=== PATIENT | female | born 1940 | race Two or more races ===

== ENCOUNTER 2018-04-04 02:08 | Inpatient (IN) | payer MEDICARE, OTHER ==
[~2018-04-04] VITALS: Ht 149.9 cm; Wt 62.6 kg
[2018-04-04 04:10] VITALS: BP 121/73
[2018-04-04] MEDS ORDERED: ZOLPIDEM TARTRATE 5 MG TABLET PO PRN (04:30)
[2018-04-04] MEDS ORDERED: MAGNESIUM HYDROXIDE 30 ML UDC PO PRN (04:30)
[2018-04-04] MEDS ORDERED: HYDROCODONE/APAP 5/325MG 1 EACH TABLET PO PRN (04:30)
[2018-04-04] MEDS ORDERED: MORPHINE SULFATE INJ 2 MG/ML DISP.SYRIN IV PRN (04:30)
[2018-04-04] MEDS ORDERED: ONDANSETRON HCL/PF 4 MG/2 ML VIAL IVP PRN (04:30)
[2018-04-04] MEDS ORDERED: ACETAMINOPHEN 325 MG TABLET PO PRN (04:30)
[2018-04-04] MEDS ORDERED: NITROGLYCERIN 0.4 MG/TAB BOTTLE SL PRN (04:30)
[2018-04-04] MEDS ORDERED: CLONIDINE HCL 0.1 MG TABLET PO PRN (04:30)
[2018-04-04] MEDS ORDERED: MAG HYDROX/AL HYDROX/SIMETH 30 ML UDC PO PRN (04:30)
[2018-04-04] MEDS ORDERED: DEXTROSE 50%-WATER 50 ML DISP.SYRIN IV PRN (04:30)
[2018-04-04] MEDS ORDERED: Z GUARD REMEDY 2 OZ OINT TP PRN (04:30)
[2018-04-04 04:41] VITALS: BP 121/73
--- NOTE | 2018-04-04 05:00 | NUR ---
BENZENE WORKERPHYSIATRIST NOTE: PT ADMITTED FROM [place] ACCOMPANIED BY 2 SLATE CUTTER OPERATOR VIA GURNEY. PT IS ALERT AND ORIENTED X3. INDONESIAN SPEAKING. NO ACUTE DISTRESS NOTED. NO COMPLAINTS OF PAIN OR DISCOMFORT AT THIS TIME. ON ROOM AIR, BREATHING EVEN AND UNLABORED WITH NORMAL RESPIRATIONS. SATURATING WELL ON ROOM AIR. PT HAS IV ON RIGHT ANTECUBITAL #20 INTACT AND PATENT, FLUSHING WELL. PERTINENT ASSESSMENTS DONE. SKIN IS INTACT. MRSA NARES DONE. PER PT, SHE DOES NOT HAVE THE LIST OF HER MEDS AND JUST CALL HER DAUGHTER BETWEEN 630-7AM TO BRING THE LIST FOR HER MED RECON. BIOCHEMISTRY TEACHER JUANK AWARE. CALL LIGHT PLACED WITHIN REACH. KEPT CLEAN, DRY AND COMFORTABLE. SAFETY AND FALL PRECAUTIONS OBSERVED AND MAINTAINED. WILL CONTINUE TO MONITOR PT.
[2018-04-04] MEDS: IV NS 0.9% 1,000 ML IV PRN (05:08)
--- NOTE | 2018-04-04 06:37 | NUR ---
JOURNALISM PROFESSOR NOTE: SPOKE WITH JODY (DAUGHTER) AND STATED THAT SHE'S GONNA BRING THE LIST OF THE PATIENT'S MEDICATION.
--- NOTE | 2018-04-04 06:41 | NUR ---
PLANER STONE NOTE: NO CHANGES NOTED THROUGHOUT THE SHIFT. NO ACUTE DISTRESS NOTED. DENIES PAIN AND DISCOMFORT. NO SOB NOTED. PT AMBULATED TO BATHROOM WITH ASSIST. KEPT CLEAN, DRY AND COMFORTABLE. CALL LIGHT PLACED WITHIN REACH. SIDE RAILS UP X3. BED LOCKED AND IN LOWEST POSITION. WILL ENDORSE TO DAY SHIFT RN FOR CONTINUITY OF CARE.
[2018-04-04] MEDS: BLOOD SUGAR DIAGNOSTIC 1 EACH STRIP IN SCH ×4 (06:47→21:38)
[2018-04-04 07:40] LABS: HEMATOCRIT 32 % (33-45); HEMOGLOBIN 10.4 g/dL (11.5-14.8); LYMPHOCYTES # (AUTO) 1.5 /CMM (0.8-4.8); LYMPHOCYTES % (AUTO) 31.5 % (20.0-44.0); MEAN CORPUSCULAR HGB CONC 32 g/dl (31.0-36.0); MEAN CORPUSCULAR VOLUME 76 fL (82-100); MONOCYTES # (AUTO) 0.3 /CMM (0.1-1.30); MONOCYTES % (AUTO) 5.7 % (2.0-12.0); NEUTROPHILS % (AUTO) 60.8 % (43.0-81.0); PLATELET COUNT (AUTO) 190 /CMM (150-450); RED BLOOD CELL COUNT(AUTO) 4.27 MIL/uL (4.0-5.2); WHITE BLOOD COUNT (AUTO) 4.9 K/uL (4.3-11.0)
[2018-04-04 07:44] LABS: ALANINE AMINOTRANSFERASE 19 U/L (12-78); ALBUMIN 3.4 g/dL (3.4-5.0); ALKALINE PHOSPHATASE 83 U/L (46-116); ASPARTATE AMINOTRANSFERASE 12 U/L (15-37); BILIRUBIN,TOTAL 0.9 mg/dL (0.2-1.0); CALCIUM, SERUM 8.6 mg/dL (8.5-10.1); CARBON DIOXIDE 30 mmol/L (21-32); CHLORIDE 107 mmol/L (98-107); CREATININE 0.6 mg/dL (0.6-1.3); GLUCOSE 106 mg/dL (74-106); MAGNESIUM 1.5 mg/dL (1.8-2.4); PHOSPHORUS 3.2 mg/dL (2.5-4.9); POTASSIUM 4.5 mmol/L (3.5-5.1); SODIUM SERUM 144 mmol/L (136-145); TOTAL PROTEIN, SERUM 6.9 g/dL (6.4-8.2); UREA NITROGEN, BLOOD 15 mg/dL (7-18)
[2018-04-04 08:00] VITALS: BP_SYST 128; BP_DIAS 67; BP_DIAS 71
[2018-04-04 08:00] LABS: CHOLESTEROL 135 mg/dL (<200); HDL CHOLESTEROL 33 mg/dL (40-60); LDL 74 mg/dL (0-99); TRIGLYCERIDES 154 mg/dL (30-150)
[2018-04-04 08:50] LABS: THYROID STIMULATING HORMONE 2.107 uIU/mL (0.358-3.74)
[2018-04-04] MEDS: PANTOPRAZOLE 40 MG TABLET.DR PO SCH (08:52)
[2018-04-04] MEDS: ATORVASTATIN 10 MG TABLET PO SCH (08:52)
[2018-04-04] MEDS: ASPIRIN EC 81 MG TABLET.DR PO SCH (08:52)
[2018-04-04] MEDS: METOPROLOL TARTRATE 25 MG TABLET PO SCH ×2 (08:53→21:10)
--- NOTE | 2018-04-04 09:01 | NUR ---
VASCULAR RADIOLOGIST NOTES Patient is sitting up in bed, had breakfast with good appetite. Sinus rhythm in the tele monitor. Oxygen sat 99% in RA, denies shortness of breath, no complaint of chest pain. Will follow up med recon. Maintained safety, will cont to monitor.
[2018-04-04 09:27] LABS: APPEARANCE,URINE CLEAR (CLEAR); BILIRUBIN,URINE NEGATIVE (NEGATIVE); BLOOD, URINE NEGATIVE Ery/uL (NEGATIVE); COLOR,URINE YELLOW (YELLOW); KETONES,URINE NEGATIVE (NEGATIVE); LEUKOCYTE ESTERASE ,URINE TRACE (NEGATIVE); NITRITE, URINE NEGATIVE (NEGATIVE); PROTEIN,URINE NEGATIVE (NEGATIVE); UGLUCOSE NEGATIVE (NEGATIVE); UROBILINOGEN,URINE 0.2 EU/dL (0.2)
[2018-04-04 09:33] LABS: BACTERIA,URINE Rare /HPF (None Seen); RBC,URINE NONE SEEN /HPF (0-2); SQUAMOUS EPITHELIAL CELL,UR Rare /HPF (None Seen); WBC,URINE 0-2 /HPF (0-3)
[2018-04-04] MEDS ORDERED: SITA100T PO (10:20)
[2018-04-04] MEDS ORDERED: CARV12.52 PO (10:20)
[2018-04-04] MEDS ORDERED: INSU100V7 SQ (10:20)
[2018-04-04] MEDS ORDERED: AMLO5TAB7 PO (10:20)
[2018-04-04] MEDS ORDERED: METF-441 PO (10:20)
[2018-04-04] MEDS ORDERED: PREG150C PO (10:20)
[2018-04-04] MEDS ORDERED: LISI-603 PO (10:20)
[2018-04-04] MEDS ORDERED: OMEP20CA10 PO (10:20)
[2018-04-04] MEDS ORDERED: HYDROMORPHONE INJ 0.5 MG/0.5 ML SYRINGE IV PRN (11:00)
[2018-04-04] MEDS: Magnesium 1GM/D5W 100ML PREMIX 100 ML IV SCH ×4 (11:42→16:22)
[2018-04-04] MEDS: INSULIN REGULAR, HUMAN 100 UNIT/ML 3 ML VIAL SQ PRN ×3 (12:09→21:41)
[2018-04-04] MEDS: METFORMIN 850 MG TABLET PO SCH ×2 (12:46→17:12)
[2018-04-04] MEDS: SOD FERRIC GLUC 125 MG in IV NS 0.9% 100 ML IV SCH (14:09)
[2018-04-04 16:00] VITALS: BP 115/71
[2018-04-04 16:01] VITALS: BP 134/89
[2018-04-04] MEDS: CARVEDILOL 12.5 MG TABLET PO SCH (17:13)
--- NOTE | 2018-04-04 18:18 | NUR ---
PATHOLOGY SUPERVISOR CLOSINGNOTES Patient ambulates independently. Oxygen sat. 99%, denies shortness of breath. Sinus rhythm in the tele monitor. IVF infusing, maintained at 50ml/hr. Low magnesium today , supplemented 4gm IV. NM Myocardial stress in am, Dr. Segal spoke to the patient and daughter Aura. Patient consented procedure. NPO midnight, patient is aware. Maintained safety, will endorse to oncoming RN.
[2018-04-04 20:00] VITALS: BP 128/55
[2018-04-04] MEDS ORDERED: PREGABALIN 25 MG CAPSULE PO SCH (22:00)
[2018-04-04] MEDS ORDERED: INSULIN GLARGINE, 100 UNIT/ML CARTRIDGE SQ SCH (22:00)
[2018-04-04] MEDS ORDERED: PREGABALIN 100 MG CAPSULE PO SCH (22:00)
[2018-04-05] VITALS: BP 106/46
[2018-04-05] MEDS: IV NS 0.9% 1,000 ML IV PRN (03:23)
[2018-04-05 04:00] VITALS: BP 106/60
[2018-04-05 05:12] LABS: CALCIUM, SERUM 8.2 mg/dL (8.5-10.1); CARBON DIOXIDE 29 mmol/L (21-32); CHLORIDE 108 mmol/L (98-107); CREATININE 0.6 mg/dL (0.6-1.3); GLUCOSE 122 mg/dL (74-106); MAGNESIUM 1.9 mg/dL (1.8-2.4); PHOSPHORUS 3.2 mg/dL (2.5-4.9); POTASSIUM 3.8 mmol/L (3.5-5.1); SODIUM SERUM 144 mmol/L (136-145); UREA NITROGEN, BLOOD 11 mg/dL (7-18)
--- NOTE | 2018-04-05 06:45 | NUR ---
MS RN NOTES AWAKE & RESPONSIVE. NOT IN ANY DISTRESS. NO SOB NOTED. DENIES ANY PAIN OR DISCOMFORT AT THIS TIME. KEPT ON NPO P MN. WITH IVF INFUSING WELL. MONITORED ACCORDINGLY. CALL LIGHT WITHIN REACH. BED IN LOWEST POSITION. SR UP X2 FOR SAFETY. WILL ENDORSE TO NEXT SHIFT.
[2018-04-05] MEDS: BLOOD SUGAR DIAGNOSTIC 1 EACH STRIP IN SCH ×3 (06:48→17:01)
[2018-04-05] MEDS: PANTOPRAZOLE 40 MG TABLET.DR PO SCH (07:30)
[2018-04-05 08:00] VITALS: BP 138/75
[2018-04-05] MEDS ORDERED: REGADENOSON 0.4 MG/5 ML DISP.SYRIN IVP ONE (08:00)
--- NOTE | 2018-04-05 08:31 | NUR ---
DEPUTY INSURANCE COMMISSIONER NOTES Patient is currently NPO, for NM myocardial stress today, patient consented procedure. Sinus rhythm in the tele monitor, denies chest pain. Maintained safety, will cont to monitor.
[2018-04-05] MEDS ORDERED: OMEPRAZOLE 20 MG CAPSULE.DR PO SCH (09:00)
[2018-04-05] MEDS ORDERED: AMLODIPINE BESYLATE 5 MG TABLET PO SCH (09:00)
[2018-04-05] MEDS ORDERED: LISINOPRIL (20MG) 20 MG TABLET PO SCH (09:00)
[2018-04-05] MEDS: ATORVASTATIN 10 MG TABLET PO SCH (09:47)
[2018-04-05] MEDS: METOPROLOL TARTRATE 25 MG TABLET PO SCH (09:48)
[2018-04-05] MEDS: ASPIRIN EC 81 MG TABLET.DR PO SCH (09:48)
[2018-04-05] MEDS: CARVEDILOL 12.5 MG TABLET PO SCH ×2 (09:48→17:00)
[2018-04-05] MEDS: METFORMIN 850 MG TABLET PO SCH ×3 (09:48→17:00)
--- NOTE | 2018-04-05 12:30 | NUR ---
Place order for EKG per [place]/RT, ordered by Dr. Guerrero.
[2018-04-05] MEDS: INSULIN REGULAR, HUMAN 100 UNIT/ML 3 ML VIAL SQ PRN ×2 (13:13→17:03)
[2018-04-05 16:00] VITALS: BP 139/79
[2018-04-05] MEDS: SOD FERRIC GLUC 125 MG in IV NS 0.9% 100 ML IV SCH (16:39)
[2018-04-05 17:00] VITALS: BP 139/79
--- NOTE | 2018-04-05 18:19 | NUR ---
MS RN CLOSING NOTES Patient ambulates independently. Stable in RA, oxygen sat. 96%, denies shortness of breath. IVF infusing, maintained at 50ml/hr. VSS, no episode of chest pain. Lexiscan today, resulted negative myocardial perfusion. Possible discharge home. Maintained safety, will endorse to oncoming RN.
--- NOTE | 2018-04-05 19:03 | NUR ---
MS RN DISCHARGED Patient is seen by MINDY Bruce myocardial stress result discussed to patient by MD with wearing apparel assembler rogere, patient verbalized understanding. Patient cleared for discharge home by MD. IVC removed, gauze applied. Belongings check and send with the patient upon DC. Daughter Aura arrived to seed cone picker the patient. Discharge instruction given to patient and daughter Aura, verbalized understanding. Patient left hosp in stable condition via private car.
== END 2018-04-05 19:00 | disposition home or self-care (01) | DRG 303 ==
LOC: TELE 04:00 → MED 04-05 08:59
PROVIDERS: ADMIT Nurse Practitioner Acute Care; ATTEND Nurse Practitioner Acute Care
DX: I25.10 Atherosclerotic heart disease of native coronary artery without angina pectoris (principal); I10 Essential (primary) hypertension; E11.9 Type 2 diabetes mellitus without complications; E78.5 Hyperlipidemia, unspecified
CPT/HCPCS: 36415; 80048-TC; 80053-TC; 80061-TC; 81000-TC; 82962-TC; 83735-TC; 84100-TC; 84439-TC; 84443-TC; 84484-TC; 85025-TC; 87081-TC; 93307-TC; A9502; G0378; J1815; J2785; J2916; J3475; J7030